=== PATIENT | female | born 1940 | race Caucasian/White ===

== ENCOUNTER 2022-01-10 19:00 | Outpatient (CLI) | payer MEDICARE | END 2022-01-10 19:01 | disposition home or self-care (01) | LOC: SLEEPLAB 19:00 | PROVIDERS: ATTEND Internal Medicine | DX: G47.33 Obstructive sleep apnea (adult) (pediatric) (principal); R53.83 Other fatigue; I10 Essential (primary) hypertension; G47.10 Hypersomnia, unspecified; G47.00 Insomnia, unspecified | CPT/HCPCS: 95810 ==